=== PATIENT | female | born 1985 | race Caucasian/White ===

== ENCOUNTER 2017-10-10 21:01 | Emergency (ER) | payer SELFPAY ==
--- NOTE | 2017-10-10 21:13 | Emergency Department Record ---
History of Present Illness - General Chief Complaint: Abdominal Pain Stated Complaint: ABD PAIN/BLEEDING Time Seen by Provider: 10/10/17 21:13 Source: Patient Mode of Arrival: Ambulatory Limitations: No limitations - History of Present Illness Initial Comments: 32 yo presents with about 5 days of lower abdominal pain that was a pressure like pain in the vaginal area. No bleeding or fevers. The pain has steadily increased the last few days. Today she started having shaking chills and nausea. The pain has intensified. In the last hour she had vaginal bleeding. She has a 102 fever on arrival. No diarrhea. Her last LMP was 2 weeks ago and was normal. She had pelvic pain June [address] at [facility] on 06/15/17 that was negative for acute findings. Suggestive of pelvic congestion syndrome. No recent vaginal discharge. MD Complaint: Abdominal pain -: Days(s) (5) Location: Other (Pelvic, vaginal) Radiation: Other (vagina) Migration to: RLQ Severity: Severe Severity scale (1-10): 10 Quality: Aching Consistency: Constant Improves With: Rest Worsens With: Movement Associated Symptoms: Anorexia, Chills, Fever - Related Data Previous Rx's Medication Instructions Recorded Sertraline HCl [Zoloft] 50 mg PO DAILY #30 tab 04/17/15 Allergies Allergy/AdvReac Type Severity Reaction Status Date / Time No Known Drug Allergies Allergy Verified 03/29/15 18:57 Review of Systems Constitutional: Reports: Chills, Fever, Malaise, Weakness Eyes: Denies: Eye discharge, Eye pain, Photophobia, Vision change ENT: Denies: Congestion, Throat pain Respiratory: Denies: Cough, Dyspnea, Hemoptysis, Stridor, Wheezes Cardiovascular: Denies: Chest pain, Palpitations, Syncope Endocrine: Reports: Fatigue. Denies: Polydipsia, Polyuria Gastrointestinal: Reports: As per HPI, Abdominal pain, Nausea. Denies: Diarrhea , Vomiting Genitourinary: Denies: Dysuria, Frequency, Urgency Musculoskeletal: Denies: Arthralgia, Back pain, Joint swelling, Myalgia, Neck pain Skin: Denies: Bruising, Change in color, Rash Neurological: Denies: Headache, Numbness, Weakness Psychiatric: Denies: Anxiety Hematological/Lymphatic: Denies: Blood Clots, Easy bleeding, Easy bruising, Swollen glands Physical Exam - General General Appearance: Alert, Oriented x3, Cooperative, No acute distress Limitations: No limitations - Head Head exam: Normal inspection - Eye Eye exam: Normal appearance, PERRL. negative: Conjunctival injection, Periorbital swelling - ENT ENT exam: Normal exam, Mucous membranes moist Ear exam: Normal external inspection Nasal Exam: Normal inspection Mouth exam: Normal external inspection Teeth exam: Normal inspection - Neck Neck exam: Normal inspection, Full ROM. negative: Tenderness - Respiratory Respiratory exam: Normal lung sounds bilaterally. negative: Respiratory distress - Cardiovascular Cardiovascular Exam: Regular rate, Normal rhythm, Normal heart sounds Peripheral Pulses: 2+: Radial (R), Radial (L) - GI/Abdominal GI/Abdominal exam: Soft, Guarding, Rebound, Tenderness, Other (tender across the pelvic area, above the umbilicus is non tender). negative: Distended, Rigid - Rectal Rectal exam: Deferred - exam: Adnexal tenderness (L), Adnexal tenderness (R), cervical motion tenderness, Normal external exam, Vaginal bleeding, Other (tender bilateral adnexal). negative: Abnormal external exam, Adnexal mass (L), Adnexal mass (R) , Cervical discharge, Enlarged uterus, Normal bimanual exam, Normal speculum exam, Vaginal discharge, Vaginal erythema - Extremities Extremities exam: Normal inspection. negative: Joint swelling, Pedal edema, Tenderness - Back Back exam: Reports: Normal inspection, Full ROM. Denies: CVA tenderness (R), CVA tenderness (L), Muscle spasm, Rash noted, Tenderness - Neurological Neurological exam: Alert, Normal gait, Oriented X3 - Psychiatric Psychiatric exam: Normal affect, Normal mood. negative: Agitated, Anxious - Skin Skin exam: Dry, Intact, Normal color, Warm Course - Reevaluation(s) Reevaluation #1: CT reviewed from [facility] on 06/15/17. Follicles, Mild congestion suggestive of pelvic congestion syndrome 10/10/17 21:28 10/10/17 22:29 CBC reviewed. WBC 12 The CMP was negative The CRP is 14.8 The HCG is negative at < than 1 10/10/17 23:02 Wet Prep is negative Pt is ready for CT 10/10/17 23:37 The patient is doing better and fever decreased Waiting for CT report. 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 She was offered ambulance. She is stable to travel by car at her request without signs of any impending decompensation. She was given Zosyn prior to DC and the transfer packet including CT. 10/11/17 01:35 Medical Decision Making - Lab Data Result diagrams: 10/10/17 21:25 10/10/17 21:25 Disposition Disposition: Transfer Clinical Impression: Pelvic pain, Fever Disposition: Acute Care Hospital Transfer Transfer To: [facility] Reason For Transfer: Fever, Pelvic Pain, US needed, consult Accepting Physician: Casey Time Discussed w/Accepting Physician: 00:44 Condition: (2) Stable Forms: Patient Portal Access Time of Disposition: 00:44 Quality - Quality Measures Quality Measures: N/A - Blood Pressure Screening Does Patient Have Any of the Following: No Blood Pressure Classification: Normal BP Reading Systolic Measurement: 111 Diastolic Measurement: 71 Screening for High Blood Pressure: < Normal BP, F/U Not Required > [G8783]
[2017-10-10] MEDS ORDERED: MORPHINE SULFATE 5 MG/ML PFS IVP ONE (21:20)
[2017-10-10] MEDS ORDERED: 0.9 % SODIUM CHLORIDE 1,000 ML BAG IV ONE (21:20)
[2017-10-10] MEDS ORDERED: ONDANSETRON HCL IV 4 MG/2 ML VIAL IVP ONE (21:20)
[2017-10-10] MEDS ORDERED: ACETAMINOPHEN 1,000 MG/100 ML BTL IVPB ONE (21:24)
[2017-10-10 21:49] LABS: HEMATOCRIT 38.8 % (35.0-47.0); HEMOGLOBIN 12.8 gm/dl (11.6-16.0); MEAN CELL VOLUME 96.3 fl (81-97); MEAN CORPUSCULAR HEMOGLOBIN 31.8 pg (27-33); MEAN PLATELET VOLUME 10.1 fl (7.4-10.4); PLATELET COUNT 203 K/uL (130-400); RED BLOOD COUNT 4.03 M/uL (3.80-5.40); RED CELL DISTRIBUTION WIDTH 12.3 % (11.5-14.5); WHITE BLOOD COUNT W/O DIFF 12.8 K/uL (4.2-12.2)
[2017-10-10 21:59] LABS: BLOOD UREA NITROGEN 8 mg/dL (6-20); CREATININE 0.4 mg/dL (0.5-0.9); EST GLOMERULAR FILTRATION RATE > 60 mL/min; TOTAL PROTEIN 7.1 g/dL (6.6-8.7)
[2017-10-10 22:01] LABS: GLUCOSE,RANDOM 137 mg/dL (74-109); LACTIC ACID 1.6 mmol/L (0.5-2.2)
[2017-10-10 22:03] LABS: URINE APPEARANCE CLEAR; URINE BILIRUBIN NEGATIVE (NEGATIVE); URINE BLOOD LARGE (NEGATIVE); URINE COLOR YELLOW; URINE GLUCOSE (UA) NEGATIVE (NEGATIVE); URINE KETONE TRACE (NEGATIVE); URINE LEUKOCYTE ESTERASE TRACE (NEGATIVE); URINE NITRITE NEGATIVE (NEGATIVE); URINE UROBILINOGEN 0.2 E.U./dL (0.20 - 1.00)
[2017-10-10 22:04] LABS: ALB/GLOB RATIO 1.5 (1.1-1.8); ALBUMIN 4.3 g/dL (4.0-5.0); ALKALINE PHOSPHATASE 69 U/L (35-104); ALT/SGPT 13 U/L (<33); AST/SGOT 15 U/L (10.0-35.0)
[2017-10-10 22:05] LABS: PLATELET ESTIMATE NORMAL (NORMAL)
[2017-10-10] MEDS ORDERED: HYDROMORPHONE HCL 1 MG/ML SYRINGE IVP ONE ×3 (22:11→23:58)
[2017-10-10 22:12] LABS: TOTAL B-hCG < 0.500 mIU/mL
[2017-10-10 22:15] LABS: URINE BACTERIA 1+
[2017-10-10] MEDS ORDERED: HYDROMORPHONE HCL 2 MG/ML VIAL IVP ONE (22:52)
[2017-10-10] MEDS ORDERED: KETOROLAC 30 MG/ML VIAL IVP ONE (23:58)
[2017-10-11] MEDS ORDERED: HYDROMORPHONE HCL 2 MG/ML VIAL IVP ONE (00:01)
[2017-10-11] MEDS ORDERED: PIPERACILLIN SODIUM/TAZOBACTAM 4.5 GM in 0.9 % SODIUM CHLORIDE 100ML 100 ML IVPB SCH (00:45)
[2017-10-12 19:00] LABS: GC SPECIMEN TYPE Vaginal
--- NOTE | 2017-10-12 20:12 | CT SCAN REPORT ---
EXAM: CT SCAN ABDOMEN/PELVIS W CONTRAST HISTORY: ABDOMINAL PAIN. TECHNIQUE: Sequential axial images were obtained from the diaphragms through the ischiorectal fossa after the intravenous administration of 100 mL of Omnipaque-300 contrast material. Oral contrast was also administered. FINDINGS: The visualized lung bases appear normal. The liver, gallbladder, pancreas, and spleen appear normal. The adrenal glands and kidneys appear normal. No CT findings suggestive of obstructive uropathy. The small bowel appears normal. The appendix is visualized and appears normal. The uterus and adnexal structures appear normal. There is inflammatory change in the cul-de- sac. Findings may represent a recently ruptured cyst. The osseous structures are normal. IMPRESSION: 1. NONSPECIFIC INFLAMMATORY CHANGE IN THE CUL-DE-SAC REGION. THIS MAY REPRESENT A RECENTLY RUPTURED CYST. NO DEFINITIVE CT EVIDENCE OF COLITIS IS APPRECIATED AT THIS TIME. 2. THE APPENDIX IS VISUALIZED AND APPEARS NORMAL. JOB NUMBER: [id number] MTDD
== END 2017-10-11 01:49 | disposition short-term general hospital (02) ==
LOC: ER 21:01
DX: R10.2 Pelvic and perineal pain (principal); R10.31 Right lower quadrant pain; R50.9 Fever, unspecified; R11.0 Nausea
CPT/HCPCS: 99285 ×2; 96376; 96374; 96375; 83605; 84702; 86140; 80053; 81001; 85027; 74177; Q0111; Q9967; J1885; J2405; J1170 ×3; J2270; 87210; J2543; J7030

== ENCOUNTER 2019-03-21 10:38 | Emergency (ER) | payer SELFPAY ==
--- NOTE | 2019-03-21 10:44 | Emergency Department Record ---
History of Present Illness - General Chief complaint: Hives Stated complaint: HIVES Time Seen by Provider: 03/21/19 10:39 Source: Patient Mode of Arrival: Ambulatory Limitations: No limitations - History of Present Illness Initial comments: 33 yo female presents with 4 days of hives. She is unaware of any new products. The hives itch and are located on her arms, legs, back. No cough, shortness of breath, fever, sore throat. No new medications. No history of anaphylaxis. MD complaint: Rash -: Days(s) (4) Location: Generalized Severity: Moderate Quality: Other (itches) Consistency: Constant Improves with: None Worsens with: None Context: None Associated symptoms: Denies other symptoms Treatments Prior to Arrival: Benadryl, Other (zyrtec) - Related Data Previous Rx's Medication Instructions Recorded Prednisone [Prednisone 20Mg] 20 mg PO DAILY #14 tab 03/21/19 Allergies Allergy/AdvReac Type Severity Reaction Status Date / Time No Known Drug Allergies Allergy Verified 03/21/19 10:45 Review of Systems Constitutional: Denies: Chills, Fever, Malaise, Weakness Eyes: Denies: Eye discharge, Eye pain, Photophobia, Vision change ENT: Denies: Congestion, Throat pain Respiratory: Denies: Cough, Dyspnea, Wheezes Cardiovascular: Denies: Chest pain, Palpitations, Syncope Endocrine: Denies: Fatigue Gastrointestinal: Denies: Abdominal pain, Diarrhea, Nausea, Vomiting Genitourinary: Denies: Dysuria, Urgency Musculoskeletal: Denies: Arthralgia, Back pain, Myalgia Skin: Reports: Change in color, Pruritus, Rash Neurological: Denies: Headache, Numbness, Weakness Psychiatric: Denies: Anxiety Hematological/Lymphatic: Denies: Easy bleeding, Easy bruising, Swollen glands Past Medical History - SOCIAL HISTORY Smoking Status: Never smoker - RESPIRATORY Hx Respiratory Disorders: No - CARDIOVASCULAR Hx Cardio Disorders: No - NEURO Hx Neuro Disorders: No - GI Hx GI Disorders: No - Hx Genitourinary Disorders: No - ENDOCRINE Hx Endocrine Disorders: No - MUSCULOSKELETAL Hx Musculoskeletal Disorders: No - PSYCH Hx Psych Problems: No - HEMATOLOGY/ONCOLOGY Hx Hematology/Oncology Disorders: No Physical Exam - General General Appearance: Alert, Oriented x3, Cooperative, No acute distress Limitations: No limitations - Head Head exam: Atraumatic, Normal inspection - Eye Eye exam: Normal appearance, PERRL. negative: Conjunctival injection, Periorbital swelling, Scleral icterus - ENT ENT exam: Normal exam, Mucous membranes moist, Normal orophraynx Ear exam: negative: Normal external inspection (hives behind right ear) Nasal Exam: Normal inspection Mouth exam: Normal external inspection Teeth exam: Normal inspection Throat exam: Normal inspection. negative: Tonsillar erythema, Tonsillomegaly, Tonsillar exudate, R peritonsillar mass, L peritonsillar mass - Neck Neck exam: Normal inspection, Full ROM. negative: Tenderness - Respiratory Respiratory exam: Normal lung sounds bilaterally. negative: Decreased breath sounds, Respiratory distress, Wheezes - Cardiovascular Cardiovascular Exam: Regular rate, Normal rhythm, Normal heart sounds - GI/Abdominal GI/Abdominal exam: Soft. negative: Tenderness - Rectal Rectal exam: Deferred - exam: Deferred - Extremities Extremities exam: Full ROM. negative: Normal inspection, Calf tenderness, Pedal edema, Tenderness - Back Back exam: Reports: Rash noted. Denies: Normal inspection - Neurological Neurological exam: Alert, Oriented X3 - Psychiatric Psychiatric exam: Normal affect, Normal mood. negative: Agitated, Anxious - Skin Skin exam: Erythema, Rash, Urticaria. negative: Petechiae Distribution of rash: Back, RUE, LUE, RLE, LLE Description of rash: Urticarial, Other Disposition Disposition: Discharge Clinical Impression: Acute urticaria Disposition: Home, Self-Care Condition: (1) Good Instructions: Urticaria (ED) Additional Instructions: Call your doctor for the next available follow up appointment Review this ER visit with your family doctor Return to the ER for a recheck if worse, any new concerns or questions Take the prescriptions provided as directed You should continue the Benadryl and Zyrtec over the counter as well until the hive are gone Prescriptions: Prednisone [Prednisone 20Mg] 20 mg PO DAILY #14 tab Forms: Patient Portal Access Time of Disposition: 10:47 Quality - Quality Measures Quality Measures: N/A - Blood Pressure Screening Does Patient Have Any of the Following: No Blood Pressure Classification: Normal BP Reading Systolic Measurement: 114 Diastolic Measurement: 71 Screening for High Blood Pressure: < Normal BP, F/U Not Required > [G8783]
[2019-03-21] MEDS ORDERED: DIPHENHYDRAMINE HCL 25 MG CAPSULE PO ONE (10:48)
== END 2019-03-21 11:25 | disposition home or self-care (01) ==
LOC: ER 10:38
DX: L50.8 Other urticaria (principal)
CPT/HCPCS: 99283